=== PATIENT | female | born 1965 | race Caucasian/White ===

== ENCOUNTER 2020-12-09 10:18 | Emergency (ER) | payer OTHER ==
[~2020-12-09] VITALS: Ht 165.1 cm; Wt 71.0 kg
[~2020-12-09 10:18] MED LIST: ATEN25TA PO; PARO30TA45 PO
[2020-12-09] MEDS ORDERED: IV NORMAL SALINE 1000ML BAG 1,000 ML IV ONE (11:30)
[2020-12-09] MEDS ORDERED: DEXAMETHASONE SOD PHOS 4 MG/ML VIAL IVP ONE (11:30)
--- NOTE | 2020-12-09 12:09 | RAD ---
EXAM: CHEST 1 VIEW History: Cough, covid COMPARISON: 04/10/2013 TECHNIQUE: Single portable radiograph of the chest FINDINGS: The cardiac silhouette is unremarkable. Questionable nodule measuring 9 mm left lower lobe of the lung. The costophrenic sulci are clear and well demarcated. IMPRESSION: Questionable nodule 9 mm left lower lobe of the lung. Consider nonemergent follow-up CT chest. Electronically signed by: Ilir Lan MD (12/09/2020 12:06 PM) [id number]
[2020-12-09] MEDS ORDERED: AMOX1TAB61 PO (12:16)
[2020-12-09] MEDS ORDERED: PRED50TA PO (12:16)
--- NOTE | 2020-12-09 12:16 | ED.ADGEN ---
Past Medical History Past Medical History: Anxiety, Hypertension Past Surgical History: Cholecystectomy, Tonsillectomy, Other Additional Past Surgical Histo: Sphincterotomy, D&C Smoking Status: Never Smoker Alcohol Use: Occasionally General Adult EDM: Chief Complaint: ABDOMINAL PAIN HPI: HPI: Patient is a 55-year-old female with known COVID-19 who presents to the emergency room complaining of sore throat, left-sided jaw swelling, intermittent fever, left upper quadrant pain. She had a rapid Covid done on Wednesday that was positive. Her children are also positive. She states she did see the dentist last week and they stated that her teeth were completely normal and there was no signs of abscess at that time. She denies any cough or shortness of breath. She has not had any significant weakness. Her highest temperature has been 99.9. She states that the sore throat feels like an achy pain. She has some pain with swallowing but does not have any difficulty with swallowing. She does not have any difficulty with talking. Review of Systems: Review of Systems: Complete ROS is negative unless otherwise documented in HPI Current Medications: Current Medications Medications (Trade) Dose Ordered Sig/Florecita Start Time Stop Time Status Last Admin Dose Admin Dexamethasone Sodium Phosphate (Decadron) 10 mg 1X ONCE 12/09/20 11:30 12/09/20 11:34 DC Sodium Chloride 1,000 ml @ 1,000 mls/hr 1X ONCE 12/09/20 11:30 12/09/20 12:29 Allergies: Allergies: Allergies Coded Allergies Type Severity Reaction Last Updated Verified iodine Allergy Severe TIGHTNESS IN THROAT 12/09/20 Yes metoclopramide Adverse Reaction Intermediate EPS effects 12/09/20 Yes prochlorperazine Adverse Reaction Intermediate Previous reaction to Reglan - EPS effects 12/09/20 Yes Physical Exam: PE: General: Awake, alert, NAD. Well Nourished, well hydrated. Cooperative HEENT: Atraumatic, EOMI, PERRL, airway patent, moist oral mucosa, mild swelling to the left lower face, good shelter, no tonsillar erythema, swelling, exudate Neck: Supple, trachea midline Respiratory: CTA bilaterally, normal effort, no wheezing/crackles CV: RRR, no murmur, cap refill <2 GI: Soft, nondistended, nontender, no masses MSK: No obvious deformities Skin: Warm, dry, intact Neuro: A&O x3, speech NL, sensory and motor grossly intact, no focal deficits Psych: Normal affect, normal mood, not suicidal or homicidal Current Patient Data: Vital Signs: Vital Signs Date Time Temp Pulse Resp B/P (MAP) Pulse Ox O2 Delivery O2 Flow Rate FiO2 12/09/20 10:59 98.2 127 20 183/94 (123) 99 Room Air 98.2 EKG: EKG: [] Heart Score: Risk Factors: Risk Factors: DM, Current or recent (<one month) smoker, HTN, HLP, family history of CAD, obesity. Risk Scores: Score 0 - 3: 2.5% MACE over next 6 weeks - Discharge Home Score 4 - 6: 20.3% MACE over next 6 weeks - Admit for Clinical Observation Score 7 - 10: 72.7% MACE over next 6 weeks - Early Invasive Strategies Radiology/Procedures: Radiology/Procedures: [] Course & Med Decision Making: Course & Med Decision Making Pertinent Labs and Imaging studies reviewed. (See chart for details) Patient is 55-year-old female who presents to the emergency room with some mild swelling to the face and known COVID-19. Patient has some abdominal pain which is likely secondary to the coronavirus. Patient does not appear to have any signs of strep. It does appear that she has some swelling to her left lower face. This may be due to oncoming cellulitis. No signs of dental infection. We will place her on Augmentin and steroids. Patient's test results and vitals while in the ED were fully reviewed and discussed with the patient. Patient is stable and at this time does not need admission to the hospital. We have discussed strict return precautions and the importance of following up with their Primary Care Physician. Patient stated understanding and was given an opportunity to ask any questions. Patient is in agreement with plan. [place] Disclaimer: Scarlet Disclaimer: This electronic medical record was generated, in whole or in part, using a voice recognition dictation system. Departure Departure Impression: Primary Impression: 2019 novel coronavirus detected Additional Impressions: Abdominal pain Cellulitis, face Disposition: 01 DC HOME SELF CARE/HOMELESS Condition: STABLE Referrals: LÁZARO ZHOU MD (PCP) Patient Instructions: Facial Infection Scripts Amoxicillin/Potassium Clav (AUGMENTIN 875-125 TABLET) 1 Each Tablet 1 TAB PO Q12HR for 5 Days, #10 TAB Prov: HANY VINCENT MD 12/09/20 Prednisone (PREDNISONE) 50 Mg Tablet 1 TAB PO DAILY, #5 TAB Prov: HANY VINCENT MD 12/09/20 Problem Qualifiers HANY VINCENT MD Dec 09, 2020 12:16
[2020-12-09 12:30] VITALS: BP 123/71
--- NOTE | 2020-12-09 14:59 | EKG ---
[facility] [address] [place] [id number] Test Date: 2020-12-09 Test Time: 11:55:23 Pat Name: ALONSO LENTZ Department: Room: Gender: F Labor Representative: : 1965 Requested By: HANY VINCENT Order Number: [id number] Reading MD: Measurements Intervals [place] Rate: 89 P: 34 OR: 192 QRS: 10 QRSD: 88 T: 20 QT: 354 QTc: 432 Interpretive Statements SINUS RHYTHM NORMAL ECG RI6.02 No previous ECG available for comparison
== END 2020-12-09 13:03 | disposition home or self-care (01) ==
LOC: ER 10:18
DX: U07.1 COVID-19 (principal); R10.12 Left upper quadrant pain; R60.0 Localized edema; L03.211 Cellulitis of face; J02.9 Acute pharyngitis, unspecified; F41.9 Anxiety disorder, unspecified; I10 Essential (primary) hypertension; Z90.49 Acquired absence of other specified parts of digestive tract; Z90.89 Acquired absence of other organs; Z98.890 Other specified postprocedural states; Z91.041 Radiographic dye allergy status; Z88.8 Allergy status to other drugs, medicaments and biological substances
CPT/HCPCS: 71045; 93005; 96374; 99283; J1100